=== PATIENT | female | born 1960 | race Caucasian/White ===

== ENCOUNTER → 2020-08-05 | Outpatient (CLI) | payer SELFPAY | END | disposition home or self-care (01) | LOC: COVID19 09:11 | PROVIDERS: ATTEND Student in an Organized Health Care Education/Training Program | DX: Z20.828 Contact with and (suspected) exposure to other viral communicable diseases (principal) ==

== ENCOUNTER 2021-01-22 08:59 | Emergency (ER) | payer OTHER ==
[~2021-01-22] VITALS: Wt 115.7 kg
[2021-01-22] MEDS ORDERED: VOLTAREN100 GM T (09:47)
[2021-01-22] MEDS ORDERED: NAPROSYN500 MG PO (09:47)
[2021-01-22] MEDS ORDERED: ARTHRITIS PAI42.5 GM T (09:47)
[2021-01-22] MEDS ORDERED: TYLENOL325 M1 PO (09:47)
== END 2021-01-22 09:44 | disposition home or self-care (01) ==
LOC: ED 08:59
DX: M25.461 Effusion, right knee (principal); M25.511 Pain in right shoulder; M25.551 Pain in right hip; E03.9 Hypothyroidism, unspecified; Z88.5 Allergy status to narcotic agent